=== PATIENT | male | born 1950 | race Caucasian/White ===

== ENCOUNTER 2024-05-26 08:10 | Day surgery (SDC) | payer MEDICARE ==
[2024-05-22 11:48] LABS: BASOPHILS % (AUTO) 0.2 % (0-1); EOSINOPHILS # (AUTO) 0.1 X10'3 (0-0.9); EOSINOPHILS % (AUTO) 0.8 % (0-6); HEMATOCRIT 44.7 % (42.0-52.0); HEMOGLOBIN 14.8 g/dl (14.0-17.9); LYMPHOCYTES # (AUTO) 1.2 X10'3 (1.1-4.8); LYMPHOCYTES % (AUTO) 10.3 % (21-51); MEAN CORPUSCULAR HEMOGLOBIN 31.7 PG (27.0-31.0); MEAN CORPUSCULAR HGB CONC 33.1 g/dL (33.0-36.5); MEAN CORPUSCULAR VOLUME 95.9 FL (78-98); MONOCYTES # (AUTO) 0.6 X10'3 (0-0.9); MONOCYTES % (AUTO) 5.5 % (2-12); NEUTROPHILS # (AUTO) 9.6 X10'3 (1.8-7.7); NEUTROPHILS % (AUTO) 83.2 % (42-75); PLATELET COUNT 310 X10'3 (140-440); RED BLOOD COUNT 4.66 X10'6 (4.70-6.10); RED CELL DISTRIBUTION WIDTH 13.8 % (11.5-14.5); WHITE BLOOD COUNT 11.5 X10'3 (4.5-11.0)
[2024-05-22 11:59] LABS: ALANINE AMINOTRANSFERASE 30 U/L (12-78); ALBUMIN 3.6 G/DL (3.4-5.0); ALKALINE PHOSPHATASE 76 IU/L (46-116); ANION GAP 5 (8-16); ASPARTATE AMINO TRANSFERASE 18 U/L (10-37); BILIRUBIN,TOTAL 0.4 MG/DL (0.1-1.0); BLOOD UREA NITROGEN 12 MG/DL (7-18); BUN/CREATININE RATIO 16.4 (10.0-20.0); CALCIUM 8.7 MG/DL (8.5-10.1); CHLORIDE 105 MMOL/L (99-107); CREATININE 0.73 MG/DL (0.60-1.10); GLUCOSE 95 MG/DL (70-104); POTASSIUM 4.7 MMOL/L (3.5-5.1); SODIUM 139 MMOL/L (135-145); TOTAL CARBON DIOXIDE 29.5 MMOL/L (24-32); TOTAL PROTEIN 7.1 G/DL (6.4-8.2); eGFR > 90 ML/MIN
[~2024-05-26] VITALS: Ht 177.8 cm; Wt 81.6 kg
[~2024-05-26 08:10] MED LIST: ASPI81TA52 PO; ATOR10TA PO; cefazolin 2gm/D5W 100mL 100 ML IV ONE
[2024-05-26 08:20] VITALS: BP 159/113; PULSE 62; RESP 16; TEMP 97.6; O2SAT 98
[2024-05-26] MEDS: ringers solution, lacted 1,000 ML IV SCH (08:49)
[2024-05-26] MEDS: famotidine 20mg tablet PO ONE (08:50)
[2024-05-26] MEDS ORDERED: labetalol 20mg/4ml (5mg/ml) syringe IV PRN (10:25)
[2024-05-26] MEDS ORDERED: morphine 2 MG/ML inj. syringe IV PRN (10:25)
[2024-05-26] MEDS ORDERED: meperidine/PF 25mg/ml syringe IV PRN ×3 (10:25)
[2024-05-26] MEDS: acetaminophen 1,000mg/100ml IV 100 ML IV ONE (10:25)
[2024-05-26] MEDS ORDERED: morphine 4 MG/ML inj SYRINge IV PRN (10:25)
[2024-05-26] MEDS ORDERED: proCHLORperazine 10 MG/2 ml inj IV PRN (10:25)
[2024-05-26] MEDS ORDERED: ringers solution, lacted 1,000 ML IV SCH (10:25)
[2024-05-26] MEDS ORDERED: ondansetron/PF 4mg/2ml inj IV PRN (10:25)
[2024-05-26] MEDS ORDERED: hydrALAZINE 20mg/ml inj. IV PRN (10:25)
[2024-05-26] MEDS ORDERED: fentaNYL/PF 50MCG/1 ML 2ML syringe ONE (11:21)
[2024-05-26] MEDS ORDERED: midazolam 1 mg/ML 2ml injection ONE (11:24)
[2024-05-26] MEDS ORDERED: propofol inj 20 ML IV ONE (11:24)
[2024-05-26] MEDS ORDERED: BUPIVAcaine/PF 2.5mg/ml (0.25%) 10ml vial ONE (11:26)
[2024-05-26] MEDS ORDERED: LIDOcaine 2% (20mg/ml) 5ml vial ONE (11:26)
[2024-05-26] MEDS: BUPIVAcaine/PF 2.5mg/ml (0.25%) 10ml vial IJ ONE (11:41)
[2024-05-26 11:57] VITALS: BP 122/91; PULSE 67; RESP 14; O2SAT 100
[2024-05-26 12:10] VITALS: BP 134/98; PULSE 64; RESP 17; O2SAT 100
[2024-05-26 12:20] VITALS: BP 145/91; PULSE 64; RESP 16; O2SAT 100
[2024-05-26 12:30] VITALS: BP 141/88; PULSE 60; RESP 16; O2SAT 100
[2024-05-26 12:37] VITALS: BP 140/86; PULSE 62; RESP 18; O2SAT 100
== END 2024-05-26 12:37 | disposition home or self-care (01) ==
LOC: PAS 08:10
PROVIDERS: ATTEND Orthopaedic Surgery Hand Surgery
DX: D17.21 Benign lipomatous neoplasm of skin and subcutaneous tissue of right arm (principal); R94.31 Abnormal electrocardiogram [ECG] [EKG]; I25.10 Atherosclerotic heart disease of native coronary artery without angina pectoris; I10 Essential (primary) hypertension; E78.5 Hyperlipidemia, unspecified; Z79.82 Long term (current) use of aspirin; Z79.899 Other long term (current) drug therapy; Z87.891 Personal history of nicotine dependence; Z95.1 Presence of aortocoronary bypass graft; Z96.642 Presence of left artificial hip joint; Z98.890 Other specified postprocedural states
CPT/HCPCS: 26111; 36415; 80053; 82948; 85025; 93005; J0131; J0690; J2250; J2704; J3010; J3490; J7030; J7120; Z7506; Z7512; A4215; A4618; A6449; A7000